=== PATIENT | male | born 2000 | race Caucasian/White ===

== ENCOUNTER 2025-01-14 12:29 | Emergency (ER) | payer OTHER, SELFPAY ==
[2025-01-14 12:32] VITALS: BP 125/87
[2025-01-14] MEDS: TYLENOL 1000 MG PO (13:03)
--- NOTE | 2025-01-14 13:08 | ED.GENMED ---
History of Present Illness
General
Chief Complaint: Musculo-Skeletal Complaint
Source: patient
Time Seen by Provider: 01/14/25 12:54
History of Present Illness
History of Present Illness:
24-year-old male with no significant past medical history presenting to the emergency department for evaluation of left thumb injury sustained last night when he accidentally fell, tried to brace himself during the fall and now noting pain with
range of motion of the left thumb. No other injuries were sustained. Patient is right-hand dominant.
Past History
Past History
ED Past Medical History: None
ED Past Surgical History: None
Social History
Tobacco: Non-smoker
Alcohol: None
Drug: None
Personal: Single
Living: with family
Review of Systems
Review of Systems
All Other Systems: ROS reviewed and negative except as documented in HPI and ROS
Phy Exam
Physical Exam
Physical Exam:
GENERAL: Alert , in no apparent distress
EYE: conjunctiva clear
Head: Normocephalic atraumatic
NECK: Supple,
ENT: mmm.
LUNGS: no acute respiratory distress
NEUROLOGICAL: Alert and oriented
SKIN: Warm and dry, skin intact.
MUSCULOSKELETAL: Left upper extremity: There does appear to be soft tissue swelling and slight deformity to the left thumb at the base, patient still does allow for range of motion although limited secondary to the pain. Intact and equal sensation.
Neurovascularly intact. Remainder of extremity is within normal limits.
PSYCH: Normal and appropriate interaction.
Scores
Heart Failure Risk
Heart Failure Risk Score: Not Applicable
Heart Score for Chest Pain Patients
STEMI patient?: Not applicable
Withdrawal Assessment of Alcohol
Withdrawal Assessment Completed?: Not applicable
Course
Orders/Labs/Results
Orders:
Orders
01/14/25 12:54
CR Hand - Left Min 3 Views Urgent
Comment:
Reason For Exam: pain, injury
01/14/25 13:00
Acetaminophen [Tylenol] 1,000 mg PO NOW STA
01/14/25 13:02
Acetaminophen [Tylenol] 1,000 mg .ROUTE .STK-MED ONE
Vital Signs
Initial and Last Documented VS:
Initial Vital Signs
Temp Pulse Resp BP Pulse Ox
98.3 F 75 16 125/87 97
01/14/25 12:32 01/14/25 12:32 01/14/25 12:32 01/14/25 12:32 01/14/25 12:32
Last Documented Vital Signs
Temp Pulse Resp BP Pulse Ox
98.3 F 82 17 146/75 98
01/14/25 12:32 01/14/25 14:32 01/14/25 14:32 01/14/25 14:32 01/14/25 14:32
Procedures
Splinting/Sling Placement
Left Thumb:
Procedure completed by: Devonte
Pre-splint extermity exam: neurovascular intact
Type of splint: thumb spica
Splint material: other (3 inch Ortho-Glass applied)
Splint checked by provider?: Yes
Normal distal neurovascular exam?: Yes
MDM/Problems Addressed
Differential Diagnosis Includes:
- Sprain
- Ligamentous rupture
- Dislocation
- Fracture
- Contusion
MDM/Problems Addressed:
24-year-old male presenting to the ER for evaluation of left thumb pain following an accidental fall yesterday evening. Extremity is warm and well-perfused, neurovascularly intact. Will obtain x-ray. I do have concern for possible UCL injury,
will place in a thumb spica splint regardless of x-ray imaging. Patient will likely need close follow-up with orthopedics. Will provide information for this.
*Radiology
Radiology exam reviewed: preliminary read by ED provider (No fracture)
*Pulse Oximetry
SaO2: 97
Oxygen Mode of Delivery: Room air
Patient hypoxic: no
*Critical Care Note
Total Time (30-74mins, 75-104mins- exclusive of procedures): Not Applicable
ED Attending Note
-
Portions of this chart may have been created with voice recognition software.� Occasional wrong word or��sound alike� substitutions may have occurred due to the inherent limitations of voice recognition software.
Discharge Plan
Departure
Patient Disposition: Home (Routine Discharge)
Date of Disposition: 01/14/25
Time of Disposition: 14:26
Patient with high blood pressure during this ER visit?: No
Discharge Problem:
Left thumb sprain
Instructions: Sprain (DC)
Referrals:
Kalin Xie MD [Active, Orthopedics]
UNKNOWN - PT DOES,NOT KNOW [Family Provider]
Interventions
Interventions:
*Risk Screen - Suicide Last Done: 01/14/25 12:32
*General Assessment Last Done: 01/14/25 12:32
*Neglect/Abuse Screening Last Done: 01/14/25 12:36
*ED- Fall Risk Assessment Last Done: 01/14/25 12:36
*ED COVID-19 Vaccine History Last Done: 01/14/25 12:36
*Nursing Disposition Last Done: 01/14/25 14:32
ED-Musculoskeletal Assessment Last Done: 01/14/25 12:36
Discharge Date and Time
Discharge Date/Time: 01/14/25 14:32
Print Language: [place]
[2025-01-14 14:32] VITALS: BP 146/75
== END 2025-01-14 14:32 | disposition home or self-care (01) ==
LOC: EMR 12:29
PROVIDERS: EMERGENCY PHYSICIAN Student in an Organized Health Care Education/Training Program
DX: S63.602A Unspecified sprain of left thumb, initial encounter (principal); W19.XXXA Unspecified fall, initial encounter
CPT/HCPCS: 29125; 99283; 73130